=== PATIENT | male | born 1960 | race Caucasian/White ===

== ENCOUNTER 2018-09-25 13:37 | Inpatient (IN) | payer OTHER ==
[~2018-09-25] VITALS: Ht 185.4 cm; Wt 136.5 kg
[2018-09-25] MEDS ORDERED: AVAPRO150 MG PO (14:07)
[2018-09-25] MEDS ORDERED: VYTORIN 10-401 EACH PO (14:08)
[2018-09-25] MEDS ORDERED: JANUMET XR 50-1 EAC1 PO (14:08)
[2018-09-25] MEDS ORDERED: AMARYL PO (14:09)
[2018-09-29] MEDS ORDERED: GLIMEPIRIDE4 MG PO (09:57)
== END 2018-10-04 13:33 | disposition home or self-care (01) | DRG 330 ==
LOC: RECOVERY 15:15 → O/R 09-29 06:19 → SURH 09-29 06:19 → SURG 09-29 11:18 → SURH 09-29 14:39 → MEDI 09-29 14:39 → SURH 09-30 13:36
PROVIDERS: Colon & Rectal Surgery
PROC: 07TC4ZZ Resection of Pelvis Lymphatic, Percutaneous Endoscopic Approach (ICD-10-PCS; 2018-09-29)
PROC: 0DBU4ZZ Excision of Omentum, Percutaneous Endoscopic Approach (ICD-10-PCS; 2018-09-29)
PROC: 4A033R1 Measurement of Arterial Saturation, Peripheral, Percutaneous Approach (ICD-10-PCS; 2018-09-29)
PROC: 4A12X4Z Monitoring of Cardiac Electrical Activity, External Approach (ICD-10-PCS; 2018-09-29)
PROC: 0DTF4ZZ Resection of Right Large Intestine, Percutaneous Endoscopic Approach (ICD-10-PCS; principal; 2018-09-29 18:15)
DX: D12.2 Benign neoplasm of ascending colon (principal); I97.191 Other postprocedural cardiac functional disturbances following other surgery; I11.9 Hypertensive heart disease without heart failure; E11.9 Type 2 diabetes mellitus without complications; G47.33 Obstructive sleep apnea (adult) (pediatric); E66.01 Morbid (severe) obesity due to excess calories; K21.9 Gastro-esophageal reflux disease without esophagitis; I95.2 Hypotension due to drugs; T46.5X5A Adverse effect of other antihypertensive drugs, initial encounter